=== PATIENT | female | born 2000 | race African-American/Black ===

== ENCOUNTER 2024-11-21 14:19 | Emergency (ER) | payer OTHER, MEDICAID, SELFPAY ==
[2024-11-21 14:45] VITALS: BP 127/60; PULSE 88; RESP 16; TEMP 36.6; O2SAT 100
--- NOTE | 2024-11-21 16:50 | ECG_ITS ---
Test Date: 2024-11-21 16:58:43 Measurements Intervals [place] Rate: 82 P: 54 MT: 140 QRS: 57 QRSD: 75 T: 52 QT: 328 QTc: 384 Interpretive Statements SINUS RHYTHM POSSIBLE RIGHT VENTRICULAR CONDUCTION DELAY [RSR (QR) IN V1/V2] BORDERLINE ECG No previous ECG available for comparison Electronically Signed On 11-22-2024 06:48:57 CDT by Mika Kinsey M.D.
--- NOTE | 2024-11-21 16:55 | ED_ITS ---
HPI - General Adult General Chief complaint: Unspecified Stated complaint: left rib pain x 1 week-seen by [facility]-no better Time Seen by Provider: 11/21/24 16:23 History of Present Illness HPI narrative: 24-year-old otherwise healthy female presenting to the emergency department for evaluation of left-sided rib pain going from about 1 week. She has tried Tylenol and ibuprofen without any significant relief. Denies any traumatic injuries or falls. No chest pain shortness a breath. She states her rib pain is very localized underneath her brought on the left side, round rib 4 in 5. No overlying skin changes or rashes. States that the pain is worse with palpation and deep breathing as well as with moving side to side. Was otherwise in her normal state of health. Got an x-ray done at urgent care that showed no acute injuries to the ribs, no lung problems and she was discharged home. Related Data Allergies Allergy/AdvReac Type Severity Reaction Status Date / Time No Known Allergies Allergy Verified 11/21/24 14:21 Review of Systems Review of Systems: As reviewed above in HPI Exam Narrative: GENERAL: [Well-appearing, well-nourished, and in no acute distress.] HEAD: [Normocephalic, atraumatic.] EYES: [PERRLA and EOMI.] ENT: Nares clear, no rhinorrhea or epistaxis. Mucous membranes moist. NECK: Supple. CHEST: [Clear to auscultation. No respiratory distress.] reproducible tenderness to palpation along the left-sided ribcage. No overlying skin changes. HEART: [Regular rate and rhythm]. No murmur heard. [Normal peripheral pulses.] ABDOMEN: [Soft, nondistended], [nontender], [No rigidity or guarding] EXTREMITIES: Normal range of motion. [No edema.] SKIN: Warm, dry, no rash. NEURO: [No focal deficits]. Alert and oriented [x3.] PSYCH: [Normal mood and affect.] Course Vital Signs Vital signs: Vital Signs Temperature 36.6 C 11/21/24 14:45 Pulse Rate 88 11/21/24 14:45 Respiratory Rate 16 11/21/24 14:45 Blood Pressure 127/60 11/21/24 14:45 Pulse Oximetry 100 11/21/24 14:45 Temperature 36.6 C 11/21/24 14:45 Pulse Rate 88 11/21/24 14:45 Respiratory Rate 16 11/21/24 14:45 Blood Pressure 127/60 11/21/24 14:45 Pulse Oximetry 100 11/21/24 14:45 Medical Decision Making MDM Narrative Medical decision making narrative: 24-year-old otherwise healthy female presenting with lab ribcage pain for 1 week. Went to urgent care yesterday and had x-ray of multiple ribs and multiple views. X-rays reviewed on her my chart at bedside. no acute concerns per report, x-ray independently reviewed by myself shows no acute findings. EKG was obtained here to rule out any kind of cardiac injury although very unlikely. EKG shows normal sinus rhythm, no signs of acute ischemia. Normal intervals. She has tried Tylenol ibuprofen without any relief of symptoms. Will try topical therapies like diclofenac and lidocaine patches. She is safe for discharge home at this time and counseled on costochondritis versus precordial catch syndrome is likely cause of her symptoms. Patient comfortable with this plan and safely discharged. Medical Records Medical records reviewed: Yes I reviewed the external patient's medical records. Vital Signs Vital Signs: Vital Signs Temperature 36.6 C 11/21/24 14:45 Pulse Rate 88 11/21/24 14:45 Respiratory Rate 16 11/21/24 14:45 Blood Pressure 127/60 11/21/24 14:45 Pulse Oximetry 100 11/21/24 14:45 Temperature 36.6 C 11/21/24 14:45 Pulse Rate 88 11/21/24 14:45 Respiratory Rate 16 11/21/24 14:45 Blood Pressure 127/60 11/21/24 14:45 Pulse Oximetry 100 11/21/24 14:45 Discharge Plan Discharge Clinical Impression: Rib pain on left side Patient Disposition: Home, Self-Care Condition: Stable Instructions: Antibiotic Form, Costochondritis (DC) Additional Instructions: Your chest x-ray was reviewed from urgent care and shows no acute findings or concerns. No signs of any pneumothorax or lung damage. No signs of pneumonia. Your ribs appear intact. Your EKG here shows no acute findings or concern. Will trial some topical therapies for your rib pain. Follow-up with regular primary care provider. Return with any emergency concerns. Patient Language: [place] African Prescriptions: New lidocaine 5 % adhesive patch,medicated 1 patch topical DAILY Qty: 15 0RF Rx Instructions: leave on most painful area for up to 12 hrs diclofenac sodium 1 % gel 2 g topical QID Qty: 100 0RF Rx Instructions: apply to single elbow, wrist or hand; for hand includes palm/fingers/back of hand Follow-up/Referrals: PHYSICIAN,[employer]BER [Primary Care Provider] - Time of Disposition: 17:04
--- OUTSIDE RECORDS SUMMARY | 2024-11-21 17:13 | XMS_ITS | Clinical Summary ---
Author Organization [facility] Address [address] [place] [phone] Care Team Providers Care Health Administrator Name Role Phone Lizzette Singh NP Primary Care Provider + Allergies No known active allergies Medications ibuprofen (ADVIL,MOTRIN) 600 mg tablet TAKE 1 TABLET BY MOUTH EVERY 6 HOURS WITH FOOD NEEDED 02/28/2021 Active Active Problems No known active problems Encounters Date Type Department Care Team Description 11/18/2024 3:15 PM CDT Ancillary Procedure [facility] Imaging at [address] [phone] Rib pain on left side 11/18/2024 3:00 PM CDT Ancillary Procedure [facility] Imaging at [address] [phone] Rib pain on left side 11/18/2024 Results Follow-Up [facility] Convenient Care at [address] [phone] Eulalia Collazo NP 11/17/2024 7:00 PM CDT Office Visit [facility] Convenient Care at [address] [phone] Fiona Hoyt NP Rib pain on left side (Primary Dx) from Last 3 Months Medical History Medical History Date Comments Anemia Anxiety Social History Tobacco Use Types Packs/Day Years Used Date Smoking Tobacco: Never Smokeless Tobacco: Never Comments Unknown Sex and Gender Information Value Date Recorded Sex Assigned at Not on file Legal Sex Female 3:36 PM CDT Gender Identity Female 03/21/2021 2:38 PM CDT Sexual Orientation Choose not to disclose 2020 2:38 PM CDT Obstetrics History Last Filed Vital Signs Vital Sign Reading Time Taken Comments Blood Pressure 116/68 11/17/2024 7:04 PM CDT Pulse 78 11/17/2024 7:04 PM CDT Temperature 36.6 C (97.8 F) 11/17/2024 7:04 PM CDT Respiratory Rate 20 11/17/2024 7:04 PM CDT Oxygen Saturation 99% 11/17/2024 7:04 PM CDT Inhaled Oxygen Concentration - - Weight 69.9 kg (154 lb) 11/17/2024 7:04 PM CDT Height 170.2 cm (5' 7 ) 03/08/2021 9:12 AM CDT Body Mass Index 24.12 03/08/2021 9:12 AM CDT Plan of Treatment Health Maintenance Due Date Last Done Comments Cervical Cancer Screening 2002 Depression Screening 2002 Hepatitis C Screening 2002 Regular Well Visit/Exam 18-64 2020 Meningococcal B Vaccine (2 o f 2 - Bexsero SCDM 2-dose series) 10/20/2020 04/19/2020 DTaP/Tdap/Td Vaccine (7 - Td or Tdap) 06/15/2023 06/15/2013, 09/16/2006, 11/15/2003, Additional history exists Influenza Vaccine (#1) 2024 09/19/2017 Hepatitis B Screening Completed 05/31/2003 , 2002, 2002, Additional history exists Pneumococcal vaccine <65 Completed 003, 2002, 2002, Additional history exists Varicella Vaccines Completed 09/16/2006, 05/31/2003 HPV Vaccines Completed 09/19/2017, 04/23/2016 Procedures Procedure Name Priority Date/Time Associated Diagnosis Comments XR CHEST PA LATERAL 2 VIEWS Schedule CAITLYN, Read CAITLYN (Appt Today, Awaiting Results) 11/18/2024 3:10 PM CDT Rib pain on left side XR RIBS LEFT 2 VIEWS Schedule CAITLYN, Read CAITLYN (Appt Today, Awaiting Results) 11/18/2024 3:09 PM CDT Rib pain on left side from Last 3 Months Results * XR Chest PA Lateral 2 Views (11/18/2024 3:10 PM CDT) Anatomical Region Laterality Modality Body, Chest N/A Digital Radiogra phy 11/18/2024 4:01 PM CDT Narrative 11/18/2024 4:02 PM CDT EXAM DESCRIPTION: XR RIBS LEFT 2 VIEWS; XR CHEST PA LATERAL 2 VIEWS REASON FOR STUDY: Other (type) Pt complains of left rib pain for a few days. No known injury. No prior surgery to the heart, lungs, or chest. Pt vapes currently and has for a few years. ; Other (type), left rib pain TECHNIQUE: 2 view(s) of the left ribs with two views of the chest COMPARISON: None FINDINGS: HEART/MEDIASTINUM: Normal heart size. LUNGS: No focal opacity, pleural effusion, or pneumothorax. RIBS: No acute rib fracture. OTHER: No other acute findings. IMPRESSION: No acute findings in the chest or left ribs THIS IS AN ELECTRONICALLY VERIFIED FINAL REPORT 11/18/2024 4:02 PM - Electronically signed by Humza Lassiter M.D. JR T: Report ID: [id number] Reading Location: [id number] Procedure Note Humza Lassiter MD - 11/18/2024 EXAM DESCRIPTION: XR RIBS LEFT 2 VIEWS; XR CHEST PA LATERAL 2 VIEWS REASON FOR STUDY: Other (type) Pt complains of left rib pain for a few days. No known injury. No prior surgery to the heart, lungs, or chest. Pt vapes currently and has for afew years. ; Other (type), left rib pain TECHNIQUE: 2 view(s) of the left ribs with two views of the chest COMPARISON: None FINDINGS: HEART/MEDIASTINUM: Normal heart size. LUNGS: No focal opacity, pleural effusion, or pneumothorax. RIBS: No acute rib fracture. OTHER: No other acute findings. IMPRESSION: No acute findings in the chest or left ribs THIS IS AN ELECTRONICALLY VERIFIED FINAL REPORT 11/18/2024 4:02 PM - Electronically signed by Humza Lassiter M.D., JR T: Report ID: [id number] Reading Location: [id number] Fiona Hoyt NP IMG XR PROCEDURES Final Result * XR Ribs Left 2 Views (11/18/2024 3:09 PM CDT) Anatomical Region Laterality Modality Rib, Chest Left Digital Radiogra phy 11/18/2024 4:01 PM CDT Narrative 11/18/2024 4:02 PM CDT EXAM DESCRIPTION: XR RIBS LEFT 2 VIEWS; XR CHEST PA LATERAL 2 VIEWS REASON FOR STUDY: Other (type) Pt complains of left rib pain for a few days. No known injury. No prior surgery to the heart, lungs, or chest. Pt vapes currently and has for a few years. ; Other (type), left rib pain TECHNIQUE: 2 view(s) of the left ribs with two views of the chest COMPARISON: None FINDINGS: HEART/MEDIASTINUM: Normal heart size. LUNGS: No focal opacity, pleural effusion, or pneumothorax. RIBS: No acute rib fracture. OTHER: No other acute findings. IMPRESSION: No acute findings in the chest or left ribs THIS IS AN ELECTRONICALLY VERIFIED FINAL REPORT 11/18/2024 4:02 PM - Electronically signed by Humza Lassiter M.D., JR T: Report ID: [id number] Reading Location: [id number] Procedure Note Humza Lassiter MD - 11/18/2024 EXAM DESCRIPTION: XR RIBS LEFT 2 VIEWS; XR CHEST PA LATERAL 2 VIEWS REASON FOR STUDY: Other (type) Pt complains of left rib pain for a few days. No known injury. No prior surgery to the heart, lungs, or chest. Pt vapes currently and has for afew years. ; Other (type), left rib pain TECHNIQUE: 2 view(s) of the left ribs with two views of the chest COMPARISON: None FINDINGS: HEART/MEDIASTINUM: Normal heart size. LUNGS: No focal opacity, pleural effusion, or pneumothorax. RIBS: No acute rib fracture. OTHER: No other acute findings. IMPRESSION: No acute findings in the chest or left ribs THIS IS AN ELECTRONICALLY VERIFIED FINAL REPORT 11/18/2024 4:02 PM - Electronically signed by Humza Lassiter M.D., JR T: Report ID: [id number] Reading Location: [place] [id number] Fiona Hoyt NP IMG XR PROCEDURES Final Result from Last [address] [place] [address] [facility] [place] [address] [employer] [facility] [employer] Care Teams Health Administrator Relationship Specialty Start Date End Date Lizzette Singh NP PCP - General Nurse Practitioner 02/28/21
--- OUTSIDE RECORDS SUMMARY | 2024-11-21 17:13 | XMS_ITS | Referral Summary ---
Author Organization [facility] Address [address] [place] [phone] Care Team Providers Care French Lecturer Name Role Phone Lizzette Singh NP Primary Care Provider + Encounters Date Type Department Care Team Description 11/18/2024 Results Follow-Up [facility] Convenient Care at [address] [phone] Eulalia Collazo NP 11/18/2024 3:15 PM CDT Ancillary Procedure [facility] Medical Group Imaging at [address] [phone] Rib pain on left side 11/18/2024 3:00 PM CDT Ancillary Procedure [facility] Medical Group Imaging at [address] [phone] Rib pain on left side 11/17/2024 7:00 PM CDT Office Visit [facility] Convenient Care at [address] [phone] Fiona Hoyt NP Rib pain on left side (Primary Dx) from Last 3 Months Allergies No known active allergies Medications ibuprofen (ADVIL,MOTRIN) 600 mg tablet TAKE 1 TABLET BY MOUTH EVERY 6 HOURS WITH FOOD NEEDED 02/28/2021 Active Active Problems No known active problems Social History Tobacco Use Types Packs/Day Years Used Date Smoking Tobacco: Never Smokeless Tobacco: Never Comments Unknown Sex and Gender Information Value Date Recorded Sex Assigned at Not on file Legal Sex Female 3:36 PM CDT Gender Identity Female 03/21/2021 2:38 PM CDT Sexual Orientation Choose not to disclose 2020 2:38 PM CDT Last Filed Vital Signs Vital Sign Reading [...] 03/08/2021 9:12 AM CDT Plan of Treatment Not on file Procedures Procedure Name Priority Date/Time Associated Diagnosis [...] Humza Lassiter M.D., JR T: Report ID: [id number] Reading Location: [id number] Procedure Note Humza Lassiter MD - 11/18/2024 [...] Humza Lassiter M.D., JR T: Report ID: [id number] Reading Location: [id number] Fiona Hoyt NP IMG XR PROCEDURES Final [...] Humza Lassiter M.D., JR T: Report ID: [id number] Reading Location: [id number] Procedure Note Humza Lassiter MD - 11/18/2024 [...] Humza Lassiter M.D., JR T: Report ID: [id number] Reading Location: [id number] Fiona Hoyt NP IMG XR PROCEDURES Final Result from Last [address] [place] [address] [facility] [place] [address] [facility] Care Teams French Lecturer Relationship Specialty Start Date End Date Lizzette Singh NP PCP - General Nurse Practitioner 02/28/21
--- OUTSIDE RECORDS SUMMARY | 2024-11-21 17:13 | XMS_ITS | Clinical Summary ---
Author Organization [facility] Care Team Providers Care Bean Weigher Name Role Phone Unavailable Primary Care Provider Unavailabl e Social History Tobacco Use Types Packs/Day Years Used Date Smoking Tobacco: Never Assessed Comments Unknown Sex and Gender Information Value Date Recorded Sex Assigned at Not on file Legal Sex Female 1:25 PM MGMT SPECIALIST Gender Identity Not on file Sexual Orientation Not on file Plan of Treatment Health Maintenance Due Date Last Done Comments Hepatitis C Virus (HCV) Screening 2002 Meningococcal B Immunization (2 of 2 - Bexsero SCDM 2-dose series) 10/20/2020 04/19/2020 Pap Smear 2023 Influenza Immunization (#1) 2024 09/19/2017 SARS-COV-2 Immunization ( season) 2024 Respiratory Syncytial Virus (RSV) Immunization (Adult) (1 - 1-dose 75+ series) 2077 Hepatitis B Immunization Completed 003, 2002, 2002 Pneumococcal Immunization Combined Aged Out 05/31/2003, 2002, 2002, Additional history exists No longer eligible based on patient's age to complete this topic Measles Mumps Rubella (MMR) Immunization Discontinued 09/16/2006, 05/31/2003 Polio (IPV) Immunization Discontinued 007, 02/21/2003, 2002, Additional history exists Varicella Immunization Discontinued 09/16/2006, 2002 Hepatitis A Immunization Discontinued 08/06/2011, 01/2010 DTaP/Tdap/Td Immunization Discontinued 2012, 09/16/2006, 11/15/2003, Additional history exists TdaP Immunization Completed 06/15/2013 Human Papillomavirus (HPV) Immunization Completed 09/19/2017, 04/23/2016 Meningococcal Immunization (ACWY) Completed 04/19/2020, 06/15/2013 Rotavirus Immunization Aged Out No lo nger eligible based on patient's age to complete this topic
--- OUTSIDE RECORDS SUMMARY | 2024-11-21 17:13 | XMS_ITS | Encounter Summary ---
Author Organization [facility] Address [address] [place] [address] Care Team Providers Care Water Pump Operator Name Role Phone Lizzette Singh FLORAL DESIGN TEACHER Primary Care Provider + Encounter Details Date Type Department Care Team (Late st Contact Info) Description 11/18/2024 Results Follow-Up [facility] Convenient Care at [address] [phone] Eulalia Collazo NP [address] [place] [address] [address] [place] [address] Social History Tobacco Use Types Packs/Day Years Used Date Smoking Tobacco: Never Smokeless Tobacco: Never Comments Unknown Sex and Gender Information Value Date Recorded Sex Assigned at Not on file Legal Sex Female 3:36 PM CDT Gender Identity Female 03/21/2021 2:38 PM CDT Sexual Orientation Choose not to disclose 2020 2:38 PM CDT documented as of this encounter Plan of Treatment Not on file documented as of this encounter Visit Diagnoses Not on filedocumented in this encounter Care Teams Water Pump Operator Relationship Specialty Start Date End Date Lizzette Singh NP PCP - General Nurse Practitioner 02/28/21 documented as of this encounter
[2024-11-21] MEDS: DICLOFENAC SODIUM 1% 100 GM GEL (*BKC) 1 APPLIC TOPICAL (17:22)
== END 2024-11-21 17:24 | disposition home or self-care (01) ==
PROVIDERS: Emergency Provider Student in an Organized Health Care Education/Training Program
DX: R07.81 Pleurodynia (principal); R94.31 Abnormal electrocardiogram [ECG] [EKG]
CPT/HCPCS: 93005; 99283; A9270

== ENCOUNTER 2025-01-27 17:36 | Emergency (ER) | payer OTHER, MEDICAID, SELFPAY ==
[2025-01-27 17:38] VITALS: BP 111/74; PULSE 116; RESP 18; TEMP 37.4; O2SAT 100
--- NOTE | 2025-01-27 17:54 | ECG_ITS ---
Test Date: 2025-01-27 19:32:38 Measurements Intervals [place] Rate: 104 P: 2 [place]: 126 QRS: -2 QRSD: 81 T: 5 QT: 319 QTc: 420 Interpretive Statements SINUS TACHYCARDIA POSSIBLE RIGHT VENTRICULAR CONDUCTION DELAY VOLTAGE CRITERIA FOR LVH CONSIDER INFERIOR INFARCT, AGE INDETERMINATE ABNORMAL ECG Compared to ECG 11/21/2024 16:58:43 HEART RATE HAS INCREASED Electronically Signed On 01-28-2025 06:23:13 CDT by Bismark Guerrero D.O.
--- NOTE | 2025-01-27 17:59 | ED_ITS ---
HPI - General Adult General Chief complaint: Nausea/Vomiting/Diarrhea Stated complaint: nausea/vomiting/throat pain/ fever History of Present Illness HPI narrative: 24-year-old female presented to the emergency department for evaluation for persistent sore throat. Patient did have a near syncopal episode today followed by emesis. Patient states she does have intermittent sore throat over the last few months. Patient states the symptoms began approximately a 4 days ago. Patient did have outpatient testing at urgent care with negative mono and negative COVID. Related Data Allergies Allergy/AdvReac Type Severity Reaction Status Date / Time No Known Allergies Allergy Verified 11/21/24 14:21 Review of Systems 2 Review of Systems: All systems reviewed & are unremarkable except as noted in HPI and below Exam 2 Narrative: APPEARANCE: Well appearing, no pain, no distress, well-nourished. HEAD: normocephalic, atraumatic. EYES: PERRLA/EOMI, conjunctivae clear. NOSE: Normal no drainage EARS:TMS clear with good light reflex. THROAT: Pharynx clear, no exudate. NECK: Supple. No adenopathy, no masses. RESPIRATORY: Airway patent, respirations nonlabored. Clear to auscultation bilaterally, no rales, rhonchi, wheezing. CARDIOVASCULAR: Regular rate and rhythm without murmurs rubs or gallops. ABDOMINAL: Soft, nontender, nondistended, normal bowel sounds MUSCULOSKELETAL: Moves all extremities. Strength/ROM intact, No edema, No calf tenderness. NEURO: Alert. Cranial nerves II through XII intact. Good gait. Good coordination SKIN: Warm, dry. Normal Color PSYCHIATRIC: Normal affect/mood. Course Vital Signs Vital signs: Vital Signs Temperature 99.3 F 01/27/25 17:38 Pulse Rate 116 H 01/27/25 17:38 Respiratory Rate 18 01/27/25 17:38 Blood Pressure 111/74 01/27/25 17:38 Pulse Oximetry 100 01/27/25 17:38 Oxygen Delivery Room Air 01/27/25 17:38 Temperature 99.3 F 01/27/25 17:38 Pulse Rate 98 01/27/25 20:14 Respiratory Rate 18 01/27/25 20:14 Blood Pressure 117/76 01/27/25 20:14 Pulse Oximetry 100 01/27/25 20:14 Oxygen Delivery Room Air 01/27/25 17:38 Medical Decision Making [facility] Narrative Medical decision making narrative: 24-year-old female presents emergency department for evaluation for sore throat. Patient is currently afebrile but does have a leukocytosis of 10.5 and hemoglobin of 10.9. No significant abnormalities on the patient's CMP patient's urine preg was negative patient was negative for influenza RSV and for COVID patient was negative for strep. Patient does have large tonsils with exudate. Patient was tested negative for mono early today. Patient was started on antibiotics for concern for bacterial pharyngitis. Patient was treated with a L of IV fluids, 10 mg of IM dexamethasone. Patient will be discharged home with antibiotic and courage have close follow-up with ENT for recurrent pharyngitis. Differential Diagnosis Differential Diagnosis: COVID, RSV, influenza, strep throat, mono, dehydration, Vital Signs Vital Signs: Vital Signs Temperature 99.3 F 01/27/25 17:38 Pulse Rate 116 H 01/27/25 17:38 Respiratory Rate 18 01/27/25 17:38 Blood Pressure 111/74 01/27/25 17:38 Pulse Oximetry 100 01/27/25 17:38 Oxygen Delivery Room Air 01/27/25 17:38 Temperature 99.3 F 01/27/25 17:38 Pulse Rate 98 01/27/25 20:14 Respiratory Rate 18 01/27/25 20:14 Blood Pressure 117/76 01/27/25 20:14 Pulse Oximetry 100 01/27/25 20:14 Oxygen Delivery Room Air 01/27/25 17:38 Lab Data Lab results reviewed: Yes I reviewed the patient's lab results. 01/27/25 18:01 01/27/25 18:01 Labs: Lab Results 01/27/25 01/27/25 01/27/25 Range/Units 17:47 18:01 18:50 WBC 10.5 H (4.5-10.0) K/mm3 RBC 4.48 (4.2-5.4) M/mm3 Hgb 10.9 L (12.0-15.0) g/dL Hct 34.9 L (37.0-47.0) % MCV 77.9 L (80-100) fl MCH 24.3 L (26-34) pg MCHC 31.2 L (32-36) g/dl RDW 15.3 H (11.5-14.5) % Plt Count 194 (150-375) k/mm3 MPV 10.1 (7.4-10.4) fl Immature Gran % (Auto) 0.5 (0-0.5) % Neut % (Auto) 80.7 H (45.5-73.1) % Lymph % (Auto) 9.0 L (18.3-44.2) % Bladen % (Auto) 9.5 H (2.6-8.5) % Eos % (Auto) 0.1 (0-4.4) % Baso % (Auto) 0.2 (0.2-1.2) % Lymph # (Auto) 0.94 (0.9-3.2) K/mm3 Bladen # (Auto) 1.0 H (0.1-0.6) K/mm3 Eos # (Auto) 0.0 (0-0.3) K/mm3 Baso # (Auto) 0.0 (0.0-0.1) K/mm3 Abs Immat Gran (auto) 0.05 H (0.00-0.031) K/mm3 Absolute Neuts (auto) 8.5 H (1.3-6.7) K/mm3 Absolute Nucleated RBC 0.000 (0.0-0.012) K/mm3 Nucleated RBC % 0.0 (0.0-0.2) % Sodium 136 L (137-145) mmol/L Potassium 3.3 L (3.4-5.0) mmol/L Chloride 102 (98-107) mmol/L Carbon Dioxide 23 (22-30) mmol/L Anion Gap 11 (4-12) mmol/L BUN 8 (7-17) mg/dL Creatinine 0.80 (0.7-1.0) mg/dL Estim Creat Clear Calc 93 ml/min Estimated GFR > 60 (59 - ) Glucose 102 (65-110) mg/dL Calcium 9.1 (8.4-10.2) mg/dL Magnesium 1.9 (1.6-2.3) mg/dL Total Bilirubin 0.7 (0.2-1.3) mg/dL AST 37 H (14-36) U/L ALT 21 (6-35) U/L Alkaline Phosphatase 58 (38-126) U/L Total Protein 7.9 (6.3-8.2) g/dL Albumin 4.1 (3.5-5.1) g/dL TSH (Reflex) 2.230 (0.465-4.68) uIU/mL POC Urine HCG, Qual Negative (Negative) Influenza A (RT-PCR) Negative (Negative) Influenza B (RT-PCR) Negative (Negative) RSV (RT-PCR) Negative (Negative) SARS-CoV-2 RNA (RT-PCR) Negative (Negative) Group A Strep (PCR) Not detected (Negative) Discharge Plan Discharge Clinical Impression: Syncope and collapse, Acute tonsillitis Patient Disposition: Home Condition: Stable Instructions: Antibiotic Form, Acute Nausea and Vomiting (ED) Additional Instructions: Antibiotic as directed until completed. Zofran as needed for nausea control. Have close follow-up with your primary care physician. Have close follow-up with ENT. Patient Language: Romanian Prescriptions: New amoxicillin-pot clavulanate 875-125 mg tablet 1 tablet PO Q12H Qty: 14 0RF ondansetron 4 mg tablet,disintegrating 4 mg PO Q8H PRN (Reason: nausea and vomiting) Qty: 14 0RF No Action lidocaine 5 % adhesive patch,medicated 1 patch topical DAILY Qty: 15 0RF Rx Instructions: leave on most painful area for up to 12 hrs diclofenac sodium 1 % gel 2 g topical QID Qty: 100 0RF Rx Instructions: apply to single elbow, wrist or hand; for hand includes palm/fingers/back of hand Follow-up/Referrals: Jose A Kendall MD [Physician] - PHYSICIAN,CITY MAINTENANCE MANAGER [Primary Care Provider] -
[2025-01-27 18:06] LABS: Basophils Percent Auto 0.2 % (0.2-1.2); Eosinophils Percent Auto 0.1 % (0-4.4); Hematocrit 34.9 % (37.0-47.0); Hemoglobin 10.9 g/dL (12.0-15.0); Immature Granulocyte Absolute 0.05 K/mm3 (0.00-0.031); Immature Granulocyte Percent A 0.5 % (0-0.5); Lymphocytes Absolute Auto 0.94 K/mm3 (0.9-3.2); Mean Corpuscular HGB Conc 31.2 g/dl (32-36); Mean Corpuscular Hemoglobin 24.3 pg (26-34); Mean Corpuscular Volume 77.9 fl (80-100); Mean Platelet Volume 10.1 fl (7.4-10.4); Monocytes Percent Auto 9.5 % (2.6-8.5); Neutrophils Absolute Auto 8.5 K/mm3 (1.3-6.7); Neutrophils Percent Auto 80.7 % (45.5-73.1); Platelet Count Result 194 k/mm3 (150-375); Red Blood Count 4.48 M/mm3 (4.2-5.4); Red Cell Distribution Width 15.3 % (11.5-14.5); White Blood Count 10.5 K/mm3 (4.5-10.0)
--- OUTSIDE RECORDS SUMMARY | 2025-01-27 18:15 | XMS_ITS | Referral Summary ---
Author Organization [facility] Address [address] [place] [phone] Care Team Providers Care Plant Protection Guard Name Role Phone Lizzette Singh NP Primary Care Provider + Encounters Date Type Department Care Team Description 01/27/2025 12:17 PM CDT Hospital Encounter [address] [address] Acute tonsillitis, unspecified etiology 01/27/2025 12:30 PM CDT Lab [facility] Outpatient Lab at [address] [phone] 01/27/2025 11:30 AM CDT Office Visit [facility] Convenient Care at [address] [phone] Fiona Hoyt NP Acute tonsillitis, unspecified etiology (Primary Dx); Tachycardia 11/18/2024 Results Follow-Up [facility] at [address] [phone] Eulalia Collazo NP XR Chest PA Lateral 2 Views 11/18/2024 3:15 PM CDT Ancillary Procedure [facility] Imaging at [address] [phone] Rib pain on left side 11/18/2024 3:00 PM CDT Ancillary Procedure [facility] Imaging at [address] [phone] Rib pain on left side 11/17/2024 7:00 PM CDT Office Visit [facility] Con[facility]ient Care at [address] [phone] Fiona Hoyt NP Rib pain on left side (Primary Dx) from Last 3 Months Allergies No known active allergies Medications ibuprofen (ADVIL,MOTRIN) 600 mg tablet TAKE 1 TABLET BY MOUTH EVERY 6 HOURS WITH FOOD NEEDED 02/28/2021 Active lidocaine viscous (XYLOCAINE) 2 % solutionIndicati ons:Acute tonsillitis, unspecified etiology Apply 5-10 mL to the mouth or throat 4 (four) times a day as needed (gargle and spit) for up to 5 days 100 mL 01/27/2025 Active Active Problems No known active problems [...] Sign Reading Time Taken Comments Blood Pressure 123/88 01/27/2025 11:43 AM CDT Pulse 112 01/27/2025 11:43 AM CDT Temperature 36.6 C (97.9 F) 01/27/2025 11:43 AM CDT Respiratory Rate 18 01/27/2025 11:43 AM CDT Oxygen Saturation 100% 01/27/2025 11:43 AM CDT Inhaled Oxygen Concentration - - Weight 67.1 kg (148 lb) 01/27/2025 11:43 AM CDT Height 170.2 cm (5' 7) 03/08/2021 9:12 AM CDT Body Mass Index 23.18 03/08/2021 9:12 AM CDT Plan of Treatment Not on file Procedures Procedure Name Priority Date/Time Associated Diagnosis Comments POCT MONONUCLEOSIS SCREEN Routine 01/27/2025 12:22 PM CDT Acute tonsillitis, unspecified etiology POCT RAPID STREP Routine 01/27/2025 12:0 0 PM CDT Acute tonsillitis, unspecified etiology XR CHEST PA LATERAL 2 VIEWS Schedule CAITLYN, Read CAITLYN (Appt Today, Awaiting Results) 11/18/2024 3:10 PM CDT Rib pain on left side XR RIBS LEFT 2 VIEWS Schedule CAITLYN, Read CAITLYN (Appt Today, Awaiting Results) 11/18/2024 3:09 PM CDT Rib pain on left side from Last 3 Months Results * POCT mononucleosis screen (01/27/2025 12:22 PM CDT) Heterophile, POC negative Blood spot 01/27/2025 12:2 2 PM CDT Fiona Hoyt SENIOR RESEARCH ASSOCIATE POINT OF CARE TEST ORDERABLES F inal Result * POCT rapid strep A (01/27/2025 12:00 PM CDT) Rapid Strep A, POC Negative Negative Swab 01/27/2025 12:0 0 PM CDT Fiona Hoyt SENIOR RESEARCH ASSOCIATE POINT OF CARE TEST ORDERABLES F inal Result * XR Chest PA Lateral 2 Views [...] Humza Lassiter M.D., JR T: Report ID: [id number] Reading Location: [id number] Procedure Note Humza Lassiter MD - 11/18/2024 [...] Humza Lassiter M.D. JR T: Report ID: [id number] Reading Location: [id number] Fiona Hoyt NP IMG XR PROCEDURES Final [...] Humza Lassiter M.D., JR T: Report ID: [id number] Reading Location: [id number] Procedure Note Humza Lassiter MD - 11/18/2024 [...] Humza Lassiter M.D. JR T: Report ID: [id number] Reading Location: [id number] Fiona Hoyt NP IMG XR PROCEDURES Final Result from Last [address] [place] [address] [facility] [place] [address] [facility] Care Teams Plant Protection Guard Relationship Specialty Start Date End Date Lizzette Singh NP PCP - General Nurse Practitioner 02/28/21
--- OUTSIDE RECORDS SUMMARY | 2025-01-27 18:15 | XMS_ITS | Clinical Summary ---
Author Organization [facility] Care Team Providers Care Linen Room Custodian Name Role Phone Unavailable Primary Care Provider Unavailabl e Social History Tobacco Use Types Packs/Day Years Used Date Smoking Tobacco: Never Assessed Comments Unknown Sex and Gender Information Value Date Recorded Sex Assigned at Not on file Legal Sex Female 1:25 PM TRAVEL RN Gender Identity Not on file Sexual Orientation [...]
--- OUTSIDE RECORDS SUMMARY | 2025-01-27 18:15 | XMS_ITS | Encounter Summary ---
Author Organization [facility] Address [address] [place] [address] Care Team Providers Care Information Security Director Name Role Phone Lizzette Singh FIBREGLASS LAMINATOR Primary Care Provider + Encounter Details Date Type Department Care Team (Late st Contact Info) Description 01/27/2025 12:30 PM CDT Lab [facility] Outpatient Lab at [address] [phone] Social History Tobacco Use Types Packs/Day Years [...] on filedocumented in this encounter Care Teams Information Security Director Relationship Specialty Start Date End Date Lizzette Singh NP PCP - General Nurse Practitioner 02/28/21 documented as of this encounter
--- OUTSIDE RECORDS SUMMARY | 2025-01-27 18:15 | XMS_ITS | Encounter Summary ---
Author Organization [facility] Healthcare Address [address] [place] [address] Care Team Providers Care Electronic Equipment Set Up Operator Name Role Phone Lizzette Singh WELDING MACHINE OPERATOR FRICTION Primary Care Provider + Reason for Visit * Reason Comments Sore Throat Encounter Details Date Type Department Care Team (Late st Contact Info) Description 01/27/2025 11:30 AM CDT Office Visit [facility] Convenient Care at [address] [phone] Fiona Hoyt NP [address] [place] [address] [address] [place] [address] Acute tonsillitis, unspecified etiology (Primary Dx); Tachycardia Social History Tobacco Use Types Packs/Day Years Used Date Smoking Tobacco: Never Smokeless Tobacco: Never Comments Unknown Sex and Gender Information Value Date Recorded Sex Assigned at Not on file Legal Sex Female 3:36 PM CDT Gender Identity Female 03/21/2021 2:38 PM CDT Sexual Orientation Choose not to disclose 2020 2:38 PM CDT documented as of this encounter Last Filed Vital Signs Vital Sign Reading Time Taken Comments Blood Pressure 123/88 01/27/2025 11:43 AM CDT Pulse 112 01/27/2025 11:43 AM CDT Temperature 36.6 C (97.9 F) 01/27/2025 11:43 AM CDT Respiratory Rate 18 01/27/2025 11:43 AM CDT Oxygen Saturation 100% 01/27/2025 11:43 AM CDT Inhaled Oxygen Concentration - - Weight 67.1 kg (148 lb) 01/27/2025 11:43 AM CDT Height - - Body Mass Index 23.18 03/08/2021 9:12 AM CDT documented in this encounter Ordered Prescriptions Prescription Sig Dispense Quantity Refills Last Filled Start Date End Date lidocaine viscous (XYLOCAINE) 2 % solutionIndication s:Acute tonsillitis, unspecified etiology Apply 5-10 mL to the mouth or throat 4 (four) times a day as needed (gargle and spit) for up to 5 days 100 mL 01/27/2025 02/01/2025 documented in this encounter Plan of Treatment Scheduled Orders Name Type Priority Associated Diagnoses Orde r Schedule Throat culture Throat Microbiology Routine Acute tonsillitis, unspecified etiology Expected: 01/30/2025, Expires: 01/27/2026 Mononucleosis screen Lab Routine Acute tonsillitis, unspecified etiology Expected: 01/30/2025, Expires: 01/27/2026 Gilberto-Esparza virus (EBV) antibody panel Blood Microbiology Routine Acute tonsillitis, unspecified etiology Expected: 01/30/2025, Expires: 01/27/2026 documented as of this encounter Procedures Procedure Name Priority Date/Time Associated Diagnosis Comments POCT MONONUCLEOSIS SCREEN Routine 01/27/2025 12:22 PM CDT Acute tonsillitis, unspecified etiology POCT RAPID STREP Routine 01/27/2025 12:0 0 PM CDT Acute tonsillitis, unspecified etiology documented in this encounter Results * POCT mononucleosis screen (01/27/2025 12:22 PM CDT) Heterophile, POC negative Blood spot 01/27/2025 12:2 2 PM CDT Fiona Hoyt NP POINT OF CARE TEST ORDERABLES F inal Result * POCT rapid strep A (01/27/2025 12:00 PM CDT) Rapid Strep A, POC Negative Negative Swab 01/27/2025 12:0 0 PM CDT Fiona Hoyt NP POINT OF CARE TEST ORDERABLES F inal Result documented in this encounter Visit Diagnoses Diagnosis Acute tonsillitis, unspecified etiology- Primary Tachycardia Unspecified tachycardia documented in this encounter Care Teams Electronic Equipment Set Up Operator Relationship Specialty Start Date End Date Lizzette Singh NP PCP - General Nurse Practitioner 02/28/21 documented as of this encounter
--- OUTSIDE RECORDS SUMMARY | 2025-01-27 18:15 | XMS_ITS | Clinical Summary ---
Author Organization [facility] Address [address] [place] [phone] Care Team Providers Care Ship'S Pilot Name Role Phone Lizzette Singh NP Primary [...] Date Type Department Care Team Description 01/27/2025 12:30 PM CDT Lab [facility] Medical [facility] Outpatient Lab at [address] [phone] 01/27/2025 12:17 PM CDT Hospital Encounter [address] [address] Acute tonsillitis, unspecified etiology 01/27/2025 11:30 AM CDT Office Visit [facility] Medical [facility] Convenient Care at [address] [phone] Fiona Hoyt NP Acute tonsillitis, unspecified etiology (Primary Dx); Tachycardia 11/18/2024 3:15 PM CDT Ancillary Procedure [facility] Medical [facility] Imaging at [address] [phone] Rib pain on left side 11/18/2024 3:00 PM CDT Ancillary Procedure [facility] Imaging at [address] [phone] Rib pain on left side 11/18/2024 Results Follow-Up [facility] Convenient Care at [address] [phone] Eulalia Collazo NP XR Chest PA Lateral 2 Views 11/17/2024 7:00 PM CDT Office Visit [facility] Convenient Care at [address] [phone] Fiona Hoyt NP Rib pain [...] 09/16/2006, 11/15/2003, Additional history exists Influenza Vaccine (Season Ended) 2025 09/19/19 18 Hepatitis B Screening Completed 05/31/2003 , 2002, [...] Negative Swab 01/27/2025 12:0 0 PM CDT us Timradha Lai ROLAND POINT OF CARE TEST ORDERABLES F inal [...] Humza Lassiter M.D., JR T: Report ID: [id number] Reading Location: [id number] Procedure Note Humza Lassiter MD - 11/18/2024 [...] Humza Lassiter M.D., JR T: Report ID: [id number] Reading Location: [id number] Timradha Hoyt FLAT BED KNITTER IM XR PROCEDURES Final Result * XR Ribs [...] Humza Lassiter M.D., JR T: Report ID: [id number] Reading Location: [id number] Procedure Note Humza Lassiter MD - 11/18/2024 [...] Humza Lassiter M.D., JR T: Report ID: [id number] Reading Location: [id number] Fiona Hoyt NP IMG XR PROCEDURES Final Result from Last [address] [place] [address] [facility] [place] [address] [facility] H[facility]/PPO Address: [address] [address] [place] [address] Care Teams Ship'S Pilot Relationship Specialty Start Date End Date Lizzette Singh NP PCP - General Nurse Practitioner 02/28/21
--- OUTSIDE RECORDS SUMMARY | 2025-01-27 18:15 | XMS_ITS | Encounter Summary ---
Author Organization [facility] Healthcare Address [address] [place] [address] Care Team Providers Care Arc Furnace Operator Name Role Phone Lizzette Singh ENVIRONMENTAL SAMPLER Primary Care Provider + Encounter Details Date Type Department Care Team (Latest Contact Info) Description 01/27/2025 12:17 PM CDT Hospital Encounter [address] [address] Acute tonsillitis, unspecified etiology Social History Tobacco Use Types Packs/Day Years Used Date Smoking Tobacco: Never Smokeless Tobacco: Never Comments Unknown Sex and Gender Information Value Date Recorded Sex Assigned at Not on file Legal Sex Female 3:36 PM CDT Gender Identity Female 03/21/2021 2:38 PM CDT Sexual Orientation Choose not to disclose 2020 2:38 PM CDT documented as of this encounter Plan of Treatment Scheduled Orders Name Type Priority Associated Diagnoses Orde r Schedule Gilberto-Esparza virus (EBV) antibody panel Blood Microbiology Routine Acute tonsillitis, unspecified etiology Once for 1 Occurrences starting 01/27/2025 until 01/27/2025 Throat culture Throat Microbiology Routine Acute tonsillitis, unspecified etiology Once for 1 Occurrences starting 01/27/2025 until 01/27/2025 documented as of this encounter Visit Diagnoses Diagnosis Acute tonsillitis, unspecified etiology documented in this encounter Care Teams Arc Furnace Operator Relationship Specialty Start Date End Date Lizzette Singh, ASUNCION PCP - General Nurse Practitioner 02/28/21 documented as of this encounter
[2025-01-27 18:18] LABS: Strep Group A RT-PCR NOT DETECTED (Negative)
[2025-01-27 18:26] LABS: Alanine Aminotransferase 21 U/L (6-35); Albumin Level 4.1 g/dL (3.5-5.1); Alkaline Phosphatase 58 U/L (38-126); Anion Gap 11 mmol/L (4-12); Aspartate Amino Transferase 37 U/L (14-36); Bilirubin,Total 0.7 mg/dL (0.2-1.3); Blood Urea Nitrogen 8 mg/dL (7-17); Calcium 9.1 mg/dL (8.4-10.2); Carbon Dioxide 23 mmol/L (22-30); Chloride 102 mmol/L (98-107); Estimated CRCL calculation 93 ml/min; Estimated Glomerular Filt Rate > 60; Glucose 102 mg/dL (65-110); Magnesium 1.9 mg/dL (1.6-2.3); Potassium 3.3 mmol/L (3.4-5.0); Sodium 136 mmol/L (137-145); Total Protein 7.9 g/dL (6.3-8.2)
[2025-01-27 18:28] LABS: Influenza A QL RT-PCR Negative (Negative); Influenza B QL RT-PCR Negative (Negative); RSV RNA, RT-PCR Negative (Negative); SARS-CoV-2 RNA PCR Negative (Negative)
[2025-01-27] MEDS: AMOXICILLIN/CLAVULANATE K 875-125 MG TAB 1 TABLET PO (18:48)
[2025-01-27] MEDS: LACTATED RINGERS 1,000 ML 999 ML IV CONT (18:48)
[2025-01-27] MEDS: dexAMETHasone SOD PHOS INJ 10 MG/ML 1 ML VIAL IM (18:49)
[2025-01-27 18:51] LABS: BEDSIDEPREGUCG Negative (Negative)
[2025-01-27 19:33] VITALS: BP 118/72; PULSE 103
[2025-01-27 19:34] VITALS: BP 118/76; PULSE 107
[2025-01-27 19:35] VITALS: BP 113/71; PULSE 115
[2025-01-27 20:14] VITALS: BP 117/76; PULSE 98; RESP 18; O2SAT 100
== END 2025-01-27 20:16 | disposition home or self-care (01) ==
PROVIDERS: Emergency Provider Emergency Medicine
DX: J03.90 Acute tonsillitis, unspecified (principal); R55 Syncope and collapse; Z20.822 Contact with and (suspected) exposure to COVID-19
CPT/HCPCS: 36415; 80053; 81025; 83735; 84443; 85025; 87637; 87651; 93005; 96360; 96372; 99283; A9270; J1100; J7120

== ENCOUNTER 2025-04-15 00:25 | Day surgery (SDC) | payer OTHER, MEDICAID, SELFPAY ==
[2025-04-06 15:52] VITALS: BMI 22.8
--- NOTE | 2025-04-06 15:59 | PC.NURSE ---
Report to the Outpatient Waiting Room, entrance under the green pavilion located off [facility], at time _0600am on date __04/15/25 . Planned Procedure Time: _0730am .? Time changes happen often and if your time is changed the preop area will call you the afternoon before. - You and your visitor will be asked to self-screen and do not enter if you have any COVID symptoms. Please call surgeon if you need to reschedule. - A mask is optional within the hospital at this time. Patients may have clear liquids (water, carbonated beverages, clear teas, apple juice) until 3 hours prior to surgery with a maximum of 20 ounces. - No food from midnight until time of surgery and no smoking, or chewing tobacco (or any form of nicotine). No chewing gum, candy or mints. (04:30am) Take only the following medications with a SIP of water on the morning of surgery: ____None DO NOT STOP ANY OF YOUR OTHER PRESCRIPTION MEDICATIONS PRIOR TO SURGERY EXCEPT THE FOLLOWING Hold all vitamins and supplements for 3 days per anesthesiologist. Medications to discontinue per physician ____NONE Date to take last dose NONE Please no make-up, nail danish, hairspray, perfume, deodorant, or body powder the day of surgery.? No jewelry (including any body piercings) or valuables the day of surgery, leave them at home.? Please take a shower or bath the night before, or the morning of, surgery with an antibacterial soap.?Dial Soap Yellow Wear comfortable, loose fitting clothing.? - Jewelry must be removed prior to entering the operating room.? Rings and piercings that are not removed may be cut off. - The hospital will not accept responsibility for valuables.? - Please leave all valuables, including medications, at home the day of surgery. If you are going home after surgery, a licensed over the road driver must drive you home.? - NO public transportation without another adult if you receive anesthesia. - We recommend that an adult stay with you for 24 hours following discharge. - We also recommend that you do not drive, make important decision, drink alcoholic beverages, or take any drugs that were not prescribed by your health care provider for at least 24 hours after your discharge time. Follow any additional instructions given to you from your surgeon. Telephone instructions given to __Patient and asked if any additional questions and then verbalized understanding. Patient advised to call surgeon office or pre surgery nurse liaison [phone] if any additional questions.
[2025-04-15] VITALS (8 sets, daily range): BP systolic 111–139; BP diastolic 66–92; PULSE 55–97; RESP 12–18; TEMP 36.6; O2SAT 100
--- OUTSIDE RECORDS SUMMARY | 2025-04-15 00:32 | XMS_ITS | Clinical Summary ---
Author Organization [facility] Care Team Providers Care Maintainer Plant Name Role Phone Unavailable Primary Care Provider Unavailabl e Social History Tobacco Use Types Packs/Day Years Used Date Smoking Tobacco: Never Assessed Comments Unknown Sex and Gender Information Value Date Recorded Sex Assigned at Not on file Legal Sex Female 1:25 PM KINDERGARTEN TEACHER Gender Identity Not on file Sexual Orientation Not on file Plan of Treatment Health Maintenance Due Date Last Done Comments Hepatitis C Virus (HCV) Screening 2002 Meningococcal B Immunization (2 of 2 - Bexsero SCDM 2-dose series) 10/20/2020 04/19/2020 SARS-COV-2 Immunization ( - season) 2024 Influenza Immunization (#1) 2025 09/19/2017 Respiratory Syncytial Virus (RSV) Immunization (Adult) (1 [...]
[2025-04-15] MEDS: LACTATED RINGERS 1,000 ML 30 ML IV CONT ×2 (06:30→09:20)
--- NOTE | 2025-04-15 06:51 | P.HP_ITS ---
H&P: HPI History of Present Illness Date/Time: 04/15/25 06:51 Chief Complaint: nasal congestion Review of Systems Review of Systems: All systems reviewed & are unremarkable except as noted in HPI and below Constitutional: Constitutional: Reports as per HPI ENT: Reports as per HPI Respiratory: Respiratory: Reports as per HPI Gastrointestinal: Gastrointestinal: Reports as per HPI [facility] Past Medical History Medical History (Updated 04/15/25 @ 06:51 by Ayla Lewis MD) Hypertrophy of tonsil and adenoid Social History Social History (Updated 01/31/25 @ 13:11 by Umu Gutiérrez) Social History: Caffeine- daily Smoking status: Never smoker Second hand tobacco smoke exposure: No Alcohol intake: current Alcohol use details: occasionally Substance use: former Substance use type: marijuana Other substance usage details: not used in months Meds Home Medications and Allergies Home Medications ?Medication ?Instructions ?Recorded ?Confirmed ?Type No Home Medications 04/06/25 04/06/25 H istory Allergies Allergy/AdvReac Type Severity Reaction Status Date / Time No Known Allergies Allergy Verified 04/06/25 15:51 Exam Const: General: cooperative, healthy appearing, comfortable, no acute distress, well developed, alert, awake and Physically active Orientation/consciousness: oriented to person, oriented to place, oriented to time and patient oriented x3 HENMT: Head: normocephalic and atraumatic Ears: external ears normal and EAC's normal Face/Nose/Sinus: Normal external nose present and Normal nares present Mouth: Yes Normal oral and palatal mucosa present, Yes lip normal and Yes tongue normal Other: enlarged adenoids,tonsil,and inferior turbinates Eyes: General: appearance normal, both eyes and all related structures Neck: Neck: normal visual inspection, full ROM and trachea midline Resp: Effort & Inspection: normal respiratory effort and able to speak in complete sentences Cardio: Rate: regular rate Neuro: General: oriented to person, oriented to place, oriented to time and patient oriented x3 Assessment and Plan Assessment and plan (1) Hypertrophy of both inferior nasal turbinates: Code(s): J34.3 - Hypertrophy of nasal turbinates Status: Acute (2) Chronic tonsillitis: Code(s): J35.01 - Chronic tonsillitis Status: Acute (3) Hypertrophy of tonsil and adenoid: Code(s): J35.3 - Hypertrophy of tonsils with hypertrophy of adenoids Status: Acute Plan 24-year-old female with hypertrophy of tonsils+3, cryptic tonsils, hypertrophy of both inferior turbinates, adenoid hypertrophy and snoring. 1. Will order tonsillectomy adenoidectomy bilateral inferior turbinate reduction. 2. Thorough discussion about alternatives benefits and risk of the procedure were thoroughly discussed with the patient 3. At this point patient prefers to go ahead for surgery. ? -Risks for tonsillectomy were discussed including but not limited to bleeding infection, injury to teeth, gums, lips and/or tongue. TMJ problems. Delayed bleeding that may require further surgery. -Risk for adenoidectomy were discussed including post surgery bleeding,change in voice ,recurrence of adenoid tissue All the questions were answered to the best of my ability and the patient wished to proceed. The procedures will be scheduled in a timely fashion.
--- NOTE | 2025-04-15 06:53 | WPDHPUPDATE1 ---
History and Physical Update Update Date/Time: 04/15/25 06:53 History and Physical has been reviewed, including an updated exam of the patient. There are NO changes in the patient's condition. Risks, benefits, and alternatives have been discussed and questions answered. Patient agrees to proceed with procedure.
[2025-04-15] MEDS: SCOPOLAMINE 1 MG PATCH 1 PATCH TRANSDERM (07:00)
[2025-04-15] MEDS: OXYMETAZOLINE HCL 0.05% NAS 15 ML BTL (*BKC) 2 SPRAY NASAL ×3 (07:00→07:10)
--- NOTE | 2025-04-15 07:06 | W.PM.PROC2 ---
Procedure Note - Detailed Date of Procedure 04/15/25 Pre-op Diagnosis hypertrophy of nasal turbinates, hypertrophy tonsils&adenoid Post-op Diagnosis Same Procedure Performed Bilateral inferior turbinate submucous reduction Tonsillectomy & adenoidectomy outfracture of both inferior turbinates Surgeon Ayla Lewis MD Anesthesia General Indications Patient? with a history of adenotonsillar hypertrophy and sleep disordered breathing.. Patient? presents today for adenotonsillectomy+Bilateral inferior turbinate submucous reduction . The risks, benefits, alternatives of the surgery, as well as the expected postoperative course were discussed with the patient and family.? They were provided ample time to discuss their questions and concerns.? They have provided informed consent. Description of Procedure After the patient was identified in the preoperative holding area, patient was transported to the operating room.? Upon arrival in the OR, the patient and intended procedure were reviewed.? The Patient?? was placed in a supine position on the table.? Anesthesia was induced, and the patient was intubated. A McIvor mouth gag was placed in the patient's mouth and opened to reveal tonsils which were? 3+in size. The palate was normal by visualization and palpation.? The tonsils were grasped with a curved Allis clamp and removed sequentially using a combination of Bizact tonsillectomy device hemostasis was achieved using 02 silk ties .? Red rubber catheters were inserted through the bilateral nares to retract the soft palate. ?A mirror was used to visualize the adenoids which were noted to be +1 in size. These were then fully ablated to the level of the choana using Bovie suction cautery, taking care to avoid the region around the torus tubarius on each side and to leave the inferior-most aspect of the adenoid bed intact.? The red rubber catheters were then removed and the mouth gag closed for 30 seconds and reopened to assess for bleeding. No further bleeding was noted. The patient was then allowed to awaken in the OR.? The Patient?? was then extubated and taken to recovery in stable condition We proceeded with submucosal inferior turbinate reduction, starting on the right side, a stab incision was made anterior mucosa of inferior turbinate. Submucosal pocket was created along the length of the inferior turbinate and the microdebrider blade 2mm thick was introduced anteriorly and into the whole submucosal pocket. Microdebrider was then used to remove the hypertrophied bony parts of anterior turbinate head and soft tissue with the outer layer intact. The residual inferior turbinate was then out fractured using Boies elevator. We proceeded to the left side. A stab incision was made on the anterior mucosa of inferior turbinate. Submucosal pocket was created along the length of the inferior turbinate and the microdebrider blade 2 mm thick was introduced anteriorly and into the whole submucosal pocket. Microdebrider was then used to remove the hypertrophied bony parts of anterior turbinate head and soft tissue with the outer layer intact. The residual inferior turbinate was then out fractured using Boies elevator..3.5 cm Merocel packing was placed in both nostrils and taped to the cheeck Estimated Blood Loss 5 (ml) Drains No Packing Yes (Merocel packing) Pathology Yes Complications No immediate complications Condition Stable Disposition PACU [facility] Billing Surgery - Charge Forward: Surgery Billing
[2025-04-15] MEDS: ACETAMINOPHEN 500 MG TABLET 1000 MG PO (07:15)
[2025-04-15] MEDS: dexAMETHasone SOD PHOS INJ 10 MG/ML 1 ML VIAL IV PUSH (07:15)
--- NOTE | 2025-04-15 07:25 | P.PNAN_ITS ---
Anes - Initial Pre Proc Eval Procedure: Operation Date: 04/15/25 07:30 Proposed Procedures p Tonsillectomy And Adenoidectomy, - Ayla Lewis MD s Bilateral Inferior Turbinate Reduction - Ayla Lewis MD Date/Time: 04/15/25 07:25 Surgeon: Ayla Lewis MD Pre Op Diagnosis: hyper nasal turbinate, hypertrophy tonsils&adneoid Patient Data Age: 24 Gender: F Height: 1.7 m Weight: 66 kg Allergies Allergy/AdvReac Type Severity Reaction Status Date / Time No Known Allergies Allergy Verified 04/06/25 15:51 Home Medications ?Medication ?Instructions ?Recorded ?Confirmed ?Type oxycodone-acetaminophen 5 mg-325 1 tablet PO Q6H PRN t hroat pain 04/15/25 Rx mg tablet (Percocet) #40 tabs Patient hx anesthesia problems: none Family hx anesthesia problems: none Results Review: All pre-operative results and documents have been reviewed as part of the pre- operative evaluation. [facility] Past Medical History Medical History Hypertrophy of tonsil and adenoid Social History Social History Social History: Caffeine- daily Smoking status: Never smoker Second hand tobacco smoke exposure: No Alcohol intake: current Alcohol use details: occasionally Substance use: former Substance use type: marijuana Other substance usage details: not used in months Anes - Eval Final PreProcedure Day of Procedure 04/15/25 07:25 Patient weight: normal Lungs: normal air movement Airway: Mallampati scale class II Neurological: alert and oriented Last oral intake: >/= 8 hours ASA classification: II Emergent: no Anesthetic plan: proceed Anesthesia type and monitoring: general ETT and standard monitoring Results Review: All pre-operative results and documents have been reviewed as part of the pre- operative evaluation. Ex smoker, quit approx 2022. Informed Consent: The patient's anesthetic plan and its attendant risks and benefits were discu ssed with the patient/family/POA. Questions were solicited and answers provided to the satisfaction of the patient/family/POA.
[2025-04-15] MEDS: ceFAZolin 1 GM in SODIUM CHLORIDE 0.9% IV 50 ML 100 ML IVPB (07:40)
--- NOTE | 2025-04-15 07:59 | S_PTH ---
PATIENT: Myke Coello LOC: [facility] U#:[id number] AGE/SX: 24/ ROOM: RE04/15/[address]: Ayla Lewis MD : 2000 BED: DIS: 04/15/2025 SPEC #: [id number] RECD: 04/15/25 10:26 STATUS: JACQUE REQ #: [id number] TEZ: 04/15/25 07:[address]: Ayla Lewis DEPT: [facility] Surgical RECD BY: Carrol Cortes ENTERED: 04/15/25 10:26 SP TYPE: Surgical OTHR DR: [facility]ICIAN Tissues: A - Tonsils Procedures: Gross and Microscopic Level 2
[2025-04-15] MEDS: LIDO 1%/EPINEPHRINE 1:100,000 50 ML VIAL INFILTRATE (08:04)
[2025-04-15] MEDS: fentaNYL CITRATE INJ (*CRX) 100 MCG/2 ML VIAL 25 MCG IV PUSH ×4 (09:27→09:42)
[2025-04-15] MEDS: oxyCODONE HCL (*CRX) 5 MG TAB IR PO (10:25)
== END 2025-04-15 11:15 | disposition home or self-care (01) ==
PROVIDERS: Visit Provider Otolaryngology Otolaryngology/Facial Plastic Surgery
PROC: (CPT 30140; principal; 2025-04-15 07:30)
PROC: (CPT 30140; 2025-04-15 07:30)
DX: J35.01 Chronic tonsillitis (principal); J34.3 Hypertrophy of nasal turbinates; J35.3 Hypertrophy of tonsils with hypertrophy of adenoids; G89.18 Other acute postprocedural pain; Z79.891 Long term (current) use of opiate analgesic
CPT/HCPCS: 30140; 42821; 88302; A9270; J0690; J1100; J2003; J2004; J2250; J2270; J2405; J2704; J3010; J7040; J7120